=== PATIENT | male | born 1975 | race Hispanic/Latino ===

== ENCOUNTER 2018-05-18 14:19 | Outpatient (CLI) | payer BC | END 2018-05-18 14:20 | disposition home or self-care (01) | LOC: DTY/OP 14:19 | PROVIDERS: ATTEND Family Medicine | DX: E11.9 Type 2 diabetes mellitus without complications (principal); E66.9 Obesity, unspecified | CPT/HCPCS: 97802 ==

== ENCOUNTER 2019-06-26 20:42 | Inpatient (IN) | payer BC ==
[2019-06-26] MEDS ORDERED: Ondansetron ODT 4 MG TAB PO PRN (21:28)
[2019-06-26] MEDS ORDERED: Acetaminophen 325 MG TAB PO PRN (21:28)
[2019-06-26] MEDS ORDERED: Vancomycin HCl 1 GM in Sodium Chloride 0.9% 250 ML 250 ML IVPB SCH (22:00)
[2019-06-26] MEDS ORDERED: Dextrose 5% in Water 1,000 ML IV PRN (22:10)
[2019-06-26] MEDS ORDERED: Dextrose 50% Abboject 50 ML SYRINGE SLOW IVP PRN (22:10)
--- NOTE | 2019-06-26 22:24 | PDOC.EVN ---
Event Note - Event Note Event Note: [id number] H&P dictated
[2019-06-26 23:27] VITALS: BMI 38.7
[2019-06-26] MEDS: Sodium Chloride 0.9% 1,000 ML IV SCH (23:47)
[2019-06-26] MEDS: Piperacillin/Tazobactam 3.375 GM in Sodium Chloride 0.9% 100 ML IVPB SCH (23:51)
--- NOTE | 2019-06-27 02:43 | HP ---
CHIEF COMPLAINT: Pain and swelling of the scrotum. HISTORY OF PRESENT ILLNESS: Mr. Saavedra is a 44-year-old male with past medical history of diabetes mellitus type 2, hydrocele which was questionably drained in the past, presents to an outside emergency room with a chief complaint of pain and swelling of the left scrotum, which started a few days ago. The patient denies fevers, chills, nausea, vomiting, or abdominal pain. Workup in the emergency room, the patient was found to be hyperglycemic with a glucose more than 600. Anion gap is normal. The patient initially was tachycardic, but after IV fluids, his heart rate is in the 80s. Ultrasound of the scrotum showed a complex left hydrocele with possible infection. ? phlegmon cannot be excluded. The patient is being admitted, started on IV antibiotics, urologist will be consulted. PAST MEDICAL HISTORY: 1. Diabetes mellitus. 2. Hypertension. 3. Hyperlipidemia. 4. Hydrocele. PAST SURGICAL HISTORY: ? drainage of hydrocele. SOCIAL HISTORY: Denies smoking, alcohol drinking, or drug abuse. HOME MEDICATIONS: Please see home medication reconciliation form for updated medication. ALLERGIES: LISTED ELSEWHERE IN THE CHART. REVIEW OF SYSTEMS: Review of 14 systems negative except what is mentioned in the history of present illness. PHYSICAL EXAMINATION: GENERAL: The patient is awake, alert, does not appear to be in acute distress. VITAL SIGNS: Blood pressure is 150/90, temperature is 98.7, pulse is 95, respiratory rate is 20. HEAD AND NECK: Normocephalic, atraumatic. Neck is supple. No JVD. CHEST: Fair bilateral air entry. HEART: S1, S2. Regular. ABDOMEN: Soft, nontender. Bowel sounds present. GENITOURINARY: Left scrotal swelling, erythema, and tenderness. NEUROLOGIC: Awake, alert, oriented x3. PSYCH: Normal mood. EXTREMITIES: No clubbing or cyanosis. LABORATORY DATA: Glucose is 617, BUN is 10, creatinine is 1, sodium 133, potassium 4.2. WBC 9.3, hemoglobin 14.4, platelets 211. Ultrasound of the scrotum as mentioned above in the history of present illness. ASSESSMENT AND PLAN: Mr. Saavedra is a 44-year-old male with history of hypertension, diabetes mellitus, hyperlipidemia, and hydrocele, who presented with pain and swelling of the scrotum. 1. Infected hydrocele, questionably. 2. Diabetes mellitus with hyperglycemia. 3. Hypertension. 4. Hyperlipidemia. PLAN: 1. Admit. 2. The patient was started on IV antibiotics in the emergency room. We will continue with IV vancomycin and Zosyn. 3. IV fluid hydration. 4. We will consult Urology for evaluation and further recommendations. 5. We will keep the patient n.p.o. after midnight until patient is seen and evaluated by urologist. 6. Monitor and control blood glucose, replace the patient's sliding scale insulin coverage. 7. Reconcile home medications. 8. DVT prophylaxis, early ambulation. 9. Expected length of stay, 2 midnights or more. Job ID: [id number]
[2019-06-27] MEDS: Piperacillin/Tazobactam 3.375 GM in Sodium Chloride 0.9% 100 ML IVPB SCH ×4 (05:43→23:27)
[2019-06-27 06:44] LABS: #Basophils 0.1 thou/uL (0.0-0.2); #Eosinphils 0.1 thou/uL (0.0-0.7); #Lymphocytes 1.9 thou/uL (1.20-3.40); #Monocytes 0.8 thou/uL (0.11-0.59); #Neutrophils 5.5 thou/uL (1.40-6.50); %Basophils 0.7 % (0.0-1.0); %Eosinophils 1.6 % (0.0-10.0); %Lymphocytes 22.3 % (21.0-51.0); %Monocytes 9.5 % (0.0-10.0); Hemoglobin 13.2 g/dL (14.0-18.0); Mean Corpuscular HGB CONC 35.4 g/dL (32.0-36.0); Mean Corpuscular Volume 90.5 fL (78.0-98.0); Mean Platelet Volume 7.1 fL (7.4-10.4); Platelet Count 182 thou/uL (130-400); RBC Distribution Width 11.2 % (11.5-14.5); Red Blood Cell (RBC) Count 4.11 mill/uL (4.70-6.10); White Blood Cell (WBC) Count 8.4 thou/uL (4.8-10.8)
[2019-06-27 07:10] LABS: Anion Gap 10 mmol/L (10-20); BUN (Urea Nitrogen) 8 mg/dL (8.9-20.6); Calc. Creatinine Clearance 159 mL/min (70-130); Calcium 8.6 mg/dL (7.8-10.44); Carbon Dioxide 24 mmol/L (22-29); Chloride 102 mmol/L (98-107); Estimated GFR-MDRD 85; Glucose 289 mg/dL (70-105); Sodium 132 mmol/L (136-145)
[2019-06-27] MEDS: Vancomycin HCl 1.5 GM in Sodium Chloride 0.9% 250 ML 300 ML IVPB SCH ×2 (08:26→16:23)
[2019-06-27] MEDS: Sodium Chloride 0.9% 1,000 ML IV SCH ×2 (08:27→15:38)
[2019-06-27 08:50] LABS: Hemoglobin A1c 12.8 % (4.0-6.0)
[2019-06-27] MEDS: Insulin Glargine 12 UNITS in Pre-Filled Syringe 1 EACH SC SCH (09:14)
--- NOTE | 2019-06-27 12:07 | PDOC.HOSPP ---
- Subjective Encounter Date: 06/27/19 Encounter Time: 14:59 Subjective: 44 y/o male with DM and prior history of hydrocoele s/p drainage admitted with worsening scrotal swelling and pain associated with purulent drainage. US showed complex left hydrocoele and he was started on antibiotics. S/p I&D with wound vac placement by urology. Denied fever. - Objective Vital Signs & Weight: Vital Signs (12 hours) Temp Pulse Resp BP Pulse Ox 06/27/19 08:31 98.1 F 67 16 133/87 97 06/27/19 08:00 98.1 F 68 06/27/19 01:51 98.5 F 72 18 110/68 96 Weight Weight 255 lb Result Diagrams: 06/27/19 06:16 06/27/19 06:15 Additional Labs: Accuchecks 06/27/19 06/26/19 05:49 23:27 POC Glucose 269 H 357 H Hospitalist ROS - Medication Medications: Active Medications Generic Name Dose Route Start Last Admin Trade Name Freq PRN Reason Stop Dose Admin Sodium Chloride 1,000 mls @ 100 mls/hr 06/26/19 21:30 06/27/19 08:27 Normal Saline 0.9% IV Not Given .Q10H MEKA Piperacillin Sod/Tazobactam 100 mls @ 200 mls/hr 06/26/19 23:59 06/27/19 05: 43 Sod 3.375 gm/ Sodium Chloride IVPB 100 mls Q6HR MEKA Administration Vancomycin HCl 1.5 gm/ Sodium 300 mls @ 200 mls/hr 06/27/19 09:00 06/27/19 08 :26 Chloride IVPB 07/02/19 23:59 300 mls 0100,0900,1700 MEKA Administration Insulin Glargine 12 units/ 0.12 mls @ 0 mls/hr 06/27/19 09:00 06/27/19 09:14 Miscellaneous Medication SC 0.12 mls QAM MEKA Administration - Exam General Appearance: awake alert General - other findings: obese Eye: anicteric sclera ENT: normocephalic atraumatic, moist mucosa Neck: supple Neck - other findings: short thick neck Heart: RRR Respiratory: no wheezes, no rales, no ronchi Gastrointestinal: soft, non-tender, non-distended, normal bowel sounds Gastrointestinal - other findings: Left scrotal dressing and wound vac noted Extremities: no edema Neurological: cranial nerve grossly intact, no focal deficits Musculoskeletal: normal tone, no muscle wasting Psychiatric: normal affect, A&O x 3 Hosp A/P (1) Infected hydrocele Code(s): N43.1 - INFECTED HYDROCELE Status: Acute (2) Diabetes mellitus Code(s): E11.9 - TYPE 2 DIABETES MELLITUS WITHOUT COMPLICATIONS Status: Acute (3) HTN (hypertension) Code(s): I10 - ESSENTIAL (PRIMARY) HYPERTENSION Status: Acute (4) Obesity (BMI 35.0-39.9 without comorbidity) Code(s): E66.9 - OBESITY, UNSPECIFIED Status: Acute (5) Hyponatremia Code(s): E87.1 - HYPO-OSMOLALITY AND HYPONATREMIA Status: Acute - Plan Continue antibioticss Awaiting culture results wound care as per urology Continue insulin therapy.
[2019-06-27] MEDS ORDERED: Bupivacaine HCl 0.5%/Epinephrine 1:200,000/PF 30 ml Vial ONE (12:28)
[2019-06-27] MEDS ORDERED: Fentanyl 100 MCG/2 ML VIAL ONE ×4 (12:28→14:21)
[2019-06-27] MEDS ORDERED: Famotidine/PF 20 mg/2ml Vial ONE (12:53)
[2019-06-27] MEDS ORDERED: Promethazine HCl 25 MG/ML VIAL IM PRN (13:27)
[2019-06-27] MEDS ORDERED: Promethazine HCl 25 MG/ML VIAL SLOW IVP PRN (13:27)
[2019-06-27] MEDS ORDERED: Ondansetron HCl/PF 4 MG/2 ML Vial IVP PRN (13:27)
[2019-06-27] MEDS ORDERED: Metoclopramide HCl 10 MG/2 ML VIAL ONE (14:29)
[2019-06-27] MEDS ORDERED: Dexamethasone 20 MG/5 ML VIAL ONE (14:29)
[2019-06-27] MEDS ORDERED: Lidocaine 1% PF 5 ML VIAL ONE (14:29)
[2019-06-27] MEDS ORDERED: PROPOFOL 200 MG/20 ML VIAL ONE (14:29)
[2019-06-27] MEDS ORDERED: Ondansetron PF 4 MG/2 ML Vial ONE (14:29)
--- NOTE | 2019-06-27 14:42 | CON ---
DATE OF CONSULTATION: 06/27/2019 HISTORY OF PRESENT ILLNESS: This is a 44-year-old male, whom I was asked to see today by the Hospitalist Service. He was admitted last night, started on Zosyn for what was initially described as infected hydrocele. I think he initially went to [facility]. He already had ultrasound done there, and I read that as possibly being a hydrocele. I have looked through his medical records here at [facility] and Dr. Sachin Agosto did a right hydrocelectomy on him 5 years ago. Pathology was benign. It was described as a thickened hydrocele sac. I am talking with him, he has not had really trouble with his testicles, does not have a hydrocele, but he has had pain and tenderness on the left side and a day or two ago he started draining some purulent fluid from the left side. He is a diabetic. His diabetes has not been recently under good control. His blood work is all normal apart from elevated glucose. PAST MEDICAL HISTORY: He has had a hydrocelectomy and he has had diabetes, hypertension, and elevated cholesterol. SOCIAL HISTORY: Drink some alcohol. Does not smoking. He is currently single. He has 2 twins, who are healthy. FAMILY HISTORY: Positive for some heart disease and diabetes. MEDICATIONS: Listed. He has been receiving Zosyn. ALLERGIES: I DO NOT BELIEVE HE HAS ANY DRUG ALLERGIES. PHYSICAL EXAMINATION: The penis is not circumcised. He has some mild balanitis and some cracking is probably related to diabetes. Testicles are descended without mass or tenderness. There is no scrotal cellulitis. There is no hydrocele noted on either side. ASSESSMENT/PLAN: He has an area that looks like it is probably a small drainage tract probably from perhaps a sebaceous cyst or sweat gland. He is draining a purulent material that we actually sent for Gram stain, culture and sensitivity, both anaerobic and aerobic. There was probably a 3 to 4 cm area x 3 cm area x 3 cm area of induration in this region is tender, indicating most likely it is still an abscess that is incompletely drained. Given the option of trying to open up at the bedside versus going to sleep. He preferred going to sleep, so we will take him to the OR, probably had to open it up 4 cm or so, get it completely cleaned out and drained out and then if available, I have the wound care team come by and place a wound VAC on him while he is asleep. I think he probably be in the hospital a day longer. He needs to get better control of his diabetes. It is probably why I kept this. This was all discussed with him. Job ID: [id number]
--- NOTE | 2019-06-27 14:56 | OP ---
DATE OF PROCEDURE: 06/27/2019 PREOPERATIVE DIAGNOSIS: Left scrotal abscess. POSTOPERATIVE DIAGNOSIS: Left scrotal abscess. PROCEDURES PERFORMED: Incision and drainage of abscess. ANESTHESIA: General. ESTIMATED BLOOD LOSS: Less than 50. DRAINS: None. PATH: None. FINDINGS: There was a 4 x 3 cm area of induration and fluctuance. It was actually just lateral to the left scrotum and just slightly to the top side of it. We incised and drained this. Culture was not sent as one was already sent from the floor. DESCRIPTION OF PROCEDURE: After obtained written and verbal consent from the patient, he was taken to the operating suite. He was placed in the supine position on the treatment table. PlexiPulse was placed on his lower extremities and turned on. He was given a general anesthetic and oral obturator intubation. He was shaved and sterilely prepped and draped. A small incision was made over the existing site that had drained and probably 10 mL of pus were drained. We then used hemostat to open up some of the loculations in there and then opened the incision up the length of the induration. Using an electrocautery unit to easily control hemostasis. we had drained all of the abscess cavity. We irrigated out with a combination of Betadine, peroxide, and water and then just with water. We obtained hemostasis and then turned the procedure over to Wound Care to place a wound VAC if possible. After that was done, the patient was awakened, extubated, and taken by a stretcher back to the recovery room. Job ID: [id number]
[2019-06-27] MEDS: HumaLOG 300 UNITS/3 ML VIAL SC PRN ×2 (16:40→20:28)
[2019-06-27] MEDS ORDERED: traMADol HCl 50 MG TAB PO PRN (18:37)
[2019-06-28 00:27] LABS: Vancomycin, Trough 13.8 ug/mL
[2019-06-28] MEDS: Vancomycin HCl 1.5 GM in Sodium Chloride 0.9% 250 ML 300 ML IVPB SCH ×2 (00:51→09:28)
[2019-06-28] MEDS: Piperacillin/Tazobactam 3.375 GM in Sodium Chloride 0.9% 100 ML IVPB SCH ×2 (05:04→12:45)
[2019-06-28 05:40] LABS: #Lymphocytes 1.1 thou/uL (1.20-3.40); #Monocytes 0.4 thou/uL (0.11-0.59); #Neutrophils 7.3 thou/uL (1.40-6.50); %Basophils 0.2 % (0.0-1.0); %Eosinophils 0.1 % (0.0-10.0); %Lymphocytes 12.7 % (21.0-51.0); %Monocytes 4.9 % (0.0-10.0); %Neutrophils 82.1 % (42.0-75.0); Hemoglobin 13.1 g/dL (14.0-18.0); Mean Corpuscular HGB CONC 34.9 g/dL (32.0-36.0); Mean Corpuscular Hemoglobin 31.5 pg (27.0-31.0); Mean Corpuscular Volume 90.1 fL (78.0-98.0); Mean Platelet Volume 7.2 fL (7.4-10.4); Platelet Count 204 thou/uL (130-400); Red Blood Cell (RBC) Count 4.16 mill/uL (4.70-6.10); White Blood Cell (WBC) Count 8.9 thou/uL (4.8-10.8)
[2019-06-28] MEDS: HumaLOG 300 UNITS/3 ML VIAL SC PRN ×4 (05:53→20:59)
[2019-06-28 05:56] LABS: Anion Gap 11 mmol/L (10-20); BUN (Urea Nitrogen) 9 mg/dL (8.9-20.6); Calc. Creatinine Clearance 154 mL/min (70-130); Calcium 8.7 mg/dL (7.8-10.44); Carbon Dioxide 21 mmol/L (22-29); Chloride 101 mmol/L (98-107); Estimated GFR-MDRD 82; Glucose 283 mg/dL (70-105); Potassium 4.2 mmol/L (3.5-5.1); Sodium 129 mmol/L (136-145)
[2019-06-28] MEDS: Insulin Glargine 12 UNITS in Pre-Filled Syringe 1 EACH SC SCH (09:06)
[2019-06-28] MEDS: Sodium Chloride 0.9% 1,000 ML IV SCH ×2 (09:09→15:15)
[2019-06-28] MEDS ORDERED: Insulin Glargine 24 UNITS in Pre-Filled Syringe 1 EACH SC SCH (10:58)
[2019-06-28] MEDS ORDERED: Insulin Glargine 12 UNITS in Pre-Filled Syringe 1 EACH SC SCH (11:00)
--- NOTE | 2019-06-28 14:49 | PDOC.HOSPP ---
- Subjective Encounter Date: 06/28/19 Encounter Time: 14:48 Subjective: 44 y/o male with DM and prior history of hydrocoele s/p drainage admitted with worsening scrotal swelling and pain associated with purulent drainage. US showed complex left hydrocoele and he was started on antibiotics. S/p I&D with wound vac placement by urology. Denied fever. Feeling better. Patient admitted that he has not being compliant with medications - Objective Vital Signs & Weight: Vital Signs (12 hours) Temp Pulse Resp BP Pulse Ox 06/28/19 11:49 98.0 F 69 18 116/74 96 06/28/19 08:00 98.3 F 06/28/19 07:52 98.3 F 70 18 129/79 97 06/28/19 04:16 98.2 F 69 16 118/70 95 Weight Weight 255 lb I&O: 06/27/19 06/28/19 06/29/19 06:59 06:59 06:59 Intake Total 5000 240 Output Total 2050 Balance 2950 240 Result Diagrams: 06/28/19 05:05 06/28/19 05:05 Additional Labs: Accuchecks 06/28/19 06/28/19 06/27/19 11:30 04:18 19:30 POC Glucose 351 H 303 H 363 H 06/27/19 16:35 POC Glucose 344 H Hospitalist ROS - Medication Medications: Active Medications Generic Name Dose Route Start Last Admin Trade Name Freq PRN Reason Stop Dose Admin Insulin Human Lispro 0 units 06/26/19 22:10 06/28/19 12:48 Humalog SC 11 unit .MODERATE SLIDING SC PRN Administration Moderate Correctional Scale - Exam General Appearance: awake alert General - other findings: obese Eye: PERRL, anicteric sclera ENT: normocephalic atraumatic, moist mucosa Neck: supple, symmetric, no JVD Heart: RRR Respiratory: no wheezes, no rales, no ronchi, normal chest expansion Gastrointestinal: soft, non-tender, non-distended, normal bowel sounds Gastrointestinal - other findings: Left scrotal wound vac in place Extremities: no cyanosis, no edema Neurological: cranial nerve grossly intact, no focal deficits Psychiatric: normal affect, A&O x 3 Hosp A/P (1) Infected hydrocele Code(s): N43.1 - INFECTED HYDROCELE Status: Acute (2) Diabetes mellitus Code(s): E11.9 - TYPE 2 DIABETES MELLITUS WITHOUT COMPLICATIONS Status: Acute (3) HTN (hypertension) Code(s): I10 - ESSENTIAL (PRIMARY) HYPERTENSION Status: Acute (4) Obesity (BMI 35.0-39.9 without comorbidity) Code(s): E66.9 - OBESITY, UNSPECIFIED Status: Acute (5) Hyponatremia Code(s): E87.1 - HYPO-OSMOLALITY AND HYPONATREMIA Status: Acute (6) Streptococcus agalactiae infection Code(s): A49.1 - STREPTOCOCCAL INFECTION, UNSPECIFIED SITE Status: Acute - Plan Start oral augmentin. DC IV vanc and zosyn Increase lantus to 24 daily. Start metformin bid. Continue sliding scale insulin. Wound care as per urology Weight loss advised Repeat BMP and CBC in the am. possible discharge tomorrow.
[2019-06-28] MEDS: metFORMIN 500 MG TAB PO SCH (17:23)
[2019-06-28] MEDS: Amoxicillin/Potassium Clav 875 MG TAB PO SCH (20:00)
[2019-06-29 05:33] LABS: #Basophils 0.1 thou/uL (0.0-0.2); #Eosinphils 0.1 thou/uL (0.0-0.7); #Lymphocytes 2.3 thou/uL (1.20-3.40); #Monocytes 0.7 thou/uL (0.11-0.59); #Neutrophils 4.9 thou/uL (1.40-6.50); %Basophils 1.4 % (0.0-1.0); %Eosinophils 1.4 % (0.0-10.0); %Lymphocytes 28.4 % (21.0-51.0); %Monocytes 8.1 % (0.0-10.0); %Neutrophils 60.8 % (42.0-75.0); Hemoglobin 13.3 g/dL (14.0-18.0); Mean Corpuscular Hemoglobin 32.1 pg (27.0-31.0); Mean Corpuscular Volume 91.7 fL (78.0-98.0); Mean Platelet Volume 7.1 fL (7.4-10.4); Platelet Count 202 thou/uL (130-400); RBC Distribution Width 11.3 % (11.5-14.5); Red Blood Cell (RBC) Count 4.14 mill/uL (4.70-6.10)
[2019-06-29] MEDS: HumaLOG 300 UNITS/3 ML VIAL SC PRN ×3 (05:41→16:46)
[2019-06-29 06:22] LABS: Anion Gap 12 mmol/L (10-20); BUN (Urea Nitrogen) 13 mg/dL (8.9-20.6); Calc. Creatinine Clearance 171 mL/min (70-130); Calcium 8.6 mg/dL (7.8-10.44); Carbon Dioxide 21 mmol/L (22-29); Chloride 104 mmol/L (98-107); Estimated GFR-MDRD Greater than 90; Glucose 214 mg/dL (70-105); Potassium 3.6 mmol/L (3.5-5.1); Sodium 133 mmol/L (136-145)
[2019-06-29] MEDS: Amoxicillin/Potassium Clav 875 MG TAB PO SCH (08:05)
[2019-06-29] MEDS: metFORMIN 500 MG TAB PO SCH ×2 (08:05→16:46)
[2019-06-29] MEDS ORDERED: Non-Formulary Item 1 EACH (Dulaglutide [Trulicity] 1.5 MG) SC SCH (08:15)
[2019-06-29] MEDS ORDERED: Alogliptin 25 MG TAB PO SCH (09:00)
[2019-06-29 12:39] VITALS: TEMP 98.1
[2019-06-29 17:52] VITALS: BP 139/95
--- NOTE | 2019-06-30 00:25 | DIS ---
DATE OF ADMISSION: 06/26/2019 DATE OF DISCHARGE: 06/29/2019 DISCHARGE DISPOSITION: Home. DISCHARGE DIAGNOSES: 1. Infected hydrocele. 2. Diabetes mellitus, type 2. 3. Hypertension. 4. Hyperlipidemia. DISCHARGE MEDICATIONS: Include: 1. Augmentin 875 mg p.o. twice a day for 10 days. 2. Januvia 100 mg p.o. daily. 3. Simvastatin 10 mg at bedtime. 4. Glumetza 1000 mg p.o. twice daily. 5. Lisinopril 20 mg daily. 6. Trulicity 1.5 mg every week. CODE STATUS: Full code. ALLERGIES: NO KNOWN DRUG ALLERGIES. PROCEDURES DONE DURING THIS ADMISSION: The patient had an I and D of the scrotal abscess and drainage and placement of a wound VAC. HOSPITAL COURSE: Mr. Saavedra is a pleasant 44-year-old gentleman, who presented to the emergency room with scrotal edema and pain. He was found to have an infected hydrocele, developing a scrotal abscess. He was placed on IV antibiotics and Urology was consulted. He underwent I and D of the hydrocele and wound VAC was placed. Arrangements were made for him to receive outpatient wound care at our [facility]. The plan was for this to be twice a week. On 06/29/2019, he was stable enough to be discharged home and is to follow up with his primary care physician in 1 to 2 weeks. Job ID: [id number]
== END 2019-06-29 17:52 | disposition home or self-care (01) | DRG 717 ==
LOC: T4-A 20:47
PROVIDERS: ADMIT Internal Medicine; ATTEND Internal Medicine
PROC: 0V950ZZ Drainage of Scrotum, Open Approach (ICD-10-PCS; principal; 2019-06-27)
DX: N43.1 Infected hydrocele (principal); E87.1 Hypo-osmolality and hyponatremia; I10 Essential (primary) hypertension; E78.5 Hyperlipidemia, unspecified; E11.65 Type 2 diabetes mellitus with hyperglycemia; E66.9 Obesity, unspecified; N49.2 Inflammatory disorders of scrotum; A49.1 Streptococcal infection, unspecified site; Z68.38 Body mass index [BMI] 38.0-38.9, adult
CPT/HCPCS: 36415; 36416; 80048; 80202; 83036; 85025; 87070; 87077; 87205; J0670; J1100; J1815; J2001; J2405; J2543; J2704; J2765; J3010; J3370; J3490; J7050; S0028

== ENCOUNTER 2019-07-01 08:59 | Outpatient (CLI) | payer BC ==
[2019-07-01] MEDS ORDERED: Sodium Chloride 0.9% 15 ML NEB ONE (09:00)
== END 2019-07-01 09:00 | disposition home or self-care (01) ==
LOC: WCC 08:59
PROVIDERS: ATTEND Family Medicine
DX: T81.89XD Other complications of procedures, not elsewhere classified, subsequent encounter (principal)
CPT/HCPCS: 36416; 97605; A4218

== ENCOUNTER 2019-07-05 15:13 | Outpatient (CLI) | payer BC ==
[2019-07-05] MEDS ORDERED: Sodium Chloride 0.9% 15 ML NEB ONE (17:24)
== END 2019-07-05 15:14 | disposition home or self-care (01) ==
LOC: WCC 15:13
PROVIDERS: ATTEND Family Medicine
DX: T81.89XD Other complications of procedures, not elsewhere classified, subsequent encounter (principal)
CPT/HCPCS: 36415; 80061; 83036; 97605; A4218

== ENCOUNTER 2019-07-08 14:46 | Outpatient (CLI) | payer BC ==
[~2019-07-08 14:46] MED LIST: Sodium Chloride 0.9% 15 ML NEB ONE
== END 2019-07-08 14:47 | disposition home or self-care (01) ==
LOC: WCC 14:46
PROVIDERS: ATTEND Family Medicine
DX: T81.89XD Other complications of procedures, not elsewhere classified, subsequent encounter (principal)
CPT/HCPCS: 36416; A4218

== ENCOUNTER 2019-07-12 14:14 | Outpatient (CLI) | payer BC ==
[2019-07-12] MEDS ORDERED: Sodium Chloride 0.9% 15 ML NEB ONE (17:08)
--- NOTE | 2019-07-12 23:20 | HP ---
HISTORY OF PRESENT ILLNESS: Mr. Neftaly Saavedra is a very pleasant 44-year-old gentleman, who presents to the Wound Center for evaluation of a wound of the left scrotum subsequent to incision and drainage of a left scrotal abscess. The patient underwent the preceding procedure on 06/27/[address] Spangler. Negative pressure therapy was initiated intraoperatively and upon discharge from [facility], the patient was referred to the Wound Center for assistance with dressing changes of the wound VAC. The patient was discharged to home on Augmentin 875 mg p.o. b.i.d. for 10 days. The patient has no complaints today. He denies any fever or chills. PAST MEDICAL HISTORY: 1. Diabetes mellitus. 2. Hypertension. PAST SURGICAL HISTORY: 1. Right hydrocelectomy on 04/12/2014. 2. Incision and drainage of left scrotal abscess on 06/27/2019. MEDICATIONS: 1. Augmentin. 2. Metformin. 3. Lisinopril. 4. Januvia. 5. Trulicity. 6. Simvastatin. ALLERGIES: NO KNOWN DIAGNOSED ALLERGIES. SOCIAL HISTORY: Social history is negative for tobacco use. The patient admits to the consumption of 1 6-pack of beer every 3 weeks since 1995. FAMILY HISTORY: Family history is significant for diabetes mellitus. The patient's mother and father were both diagnosed with diabetes mellitus. Family history is also significant for coronary artery disease. The patient's father was diagnosed with coronary artery disease. PHYSICAL EXAMINATION: VITAL SIGNS: Temperature 98.5, pulse 107, respirations 20, and blood pressure 156/73. Accu-Chek 355. GENERAL: A 44-year-old gentleman, lying on stretcher in examination room, in no acute distress. HEENT: Normocephalic, atraumatic. NECK: No nuchal rigidity. CHEST: Clear to auscultation. CV: Regular rate and rhythm. ABDOMEN: Soft. EXTREMITIES: No clubbing or cyanosis. NEUROLOGIC: Grossly nonfocal. PERINEUM: A wound of the left scrotum is present, which measures approximately 4.9 x 1.5 cm. Granulation tissue is present within the wound margins. No purulent drainage is associated with the wound. No erythema of the skin surrounding the wound is present. No maceration of the skin of the periwound is noted. ASSESSMENT AND PLAN: 1. Left scrotal wound as described above. Dressing changes of Multidex powder will be initiated today. These dressing changes are to be performed on a daily basis after cleansing and irrigation. Gauze will be utilized as a secondary dressing. I will see Mr. Saavedra again in 1 to 2 weeks. The patient understands and is in agreement with the preceding treatment plan. 2. Diabetes mellitus. The patient's Accu-Chek in clinic today is 355. The patient has been told that for optimal wound healing, his blood glucoses should remain below 150. 3. Hypertension. Job ID: [id number]
== END 2019-07-12 14:15 | disposition home or self-care (01) ==
LOC: WCC 14:14
PROVIDERS: ATTEND Family Medicine
DX: S31.000D Unspecified open wound of lower back and pelvis without penetration into retroperitoneum, subsequent encounter (principal); I10 Essential (primary) hypertension; E11.9 Type 2 diabetes mellitus without complications
CPT/HCPCS: 36416; 97602; 99203; A4218; G0463

== ENCOUNTER 2019-07-19 16:02 | Outpatient (CLI) | payer BC ==
--- NOTE | 2019-07-19 15:51 | PRG ---
DATE OF SERVICE: 07/19/2019 HISTORY: Mr. Neftaly Saavedra is a very pleasant 44-year-old gentleman, who presents to the wound center for evaluation of a wound of the left scrotum subsequent to incision and drainage of a left scrotal abscess. The patient underwent the preceding procedure on 06/27/[address] Spangelr. Negative pressure therapy was initiated intraoperatively, and upon discharge from [facility], the patient was referred to the wound center for assistance with dressing changes of the wound VAC. The patient was discharged to home on Augmentin 875 mg p.o. b.i.d. x10 days. The patient has no complaints today. He denies any fever or chills. PHYSICAL EXAMINATION: VITAL SIGNS: Temperature 98.1, pulse 92, respirations 16, and blood pressure 149/83. Accu-Chek 237. PERINEUM: A wound of the left scrotum is present, which measures approximately 4.5 x 1.1 cm. The dimensions of the wound at the time of the patient's last visit were approximately 4.9 x 1.5 cm. Granulation tissue is present within the wound margins. No purulent drainage is associated with the wound. No maceration of the skin of the periwound is noted. ASSESSMENT AND PLAN: 1. Left scrotal wound as described above. Dressing changes of Multidex powder will be continued on a daily basis after cleansing and irrigation. Gauze will be utilized as a secondary dressing. I will see Mr. Saavedra again in 1 week. The patient has been given a release from work until 07/26/2019. 2. Diabetes mellitus. The patient's Accu-Chek in clinic today is 237. The patient has been told that for optimal wound healing, his blood glucoses should remain below 150. 3. Hypertension. Job ID: [id number]
== END 2019-07-19 16:03 | disposition home or self-care (01) ==
LOC: WCC 16:02
PROVIDERS: ATTEND Family Medicine
DX: T81.89XD Other complications of procedures, not elsewhere classified, subsequent encounter (principal); I10 Essential (primary) hypertension
CPT/HCPCS: 36416; A4218

== ENCOUNTER 2019-07-26 14:28 | Outpatient (CLI) | payer BC ==
--- NOTE | 2019-07-26 16:14 | PRG ---
DATE OF SERVICE: 07/26/2019 SUBJECTIVE HISTORY: Mr. Neftaly Saavedra is a very pleasant 44-year-old gentleman, who presents to the Wound Center for evaluation of a wound of the left scrotum subsequent to incision and drainage of a left scrotal abscess. The patient underwent the preceding procedure on 06/27/[address] Spangler. Negative pressure therapy was initiated intraoperatively and upon discharge from [facility], the patient was referred to the Wound Center for assistance with dressing changes of the wound VAC. The patient was discharged to home on Augmentin 875 mg p.o. b.i.d. x10 days. After completing a course of negative pressure therapy, the patient was placed on dressing changes of Multidex powder on a daily basis after cleansing and irrigation. The patient has no complaints today. He denies any fever or chills. OBJECTIVE: VITAL SIGNS: Temperature 98.3, pulse 98, respirations 18, blood pressure 135/79. Accu-Chek 205. PERINEUM: A wound of the left scrotum is present which measures approximately 3.5 x 0.8 cm. The dimensions of the wound at the time of the patient's last visit were approximately 4.5 x 1.1 cm. Granulation tissue is present within the wound margins. No purulent drainage is associated with the wound. No maceration of the skin of the periwound is noted. No erythema of the skin surrounding the wound is present. ASSESSMENT AND PLAN: 1. Left scrotal wound as described above. Dressing changes of Multidex powder will be continued on a daily basis after cleansing and irrigation. Gauze will be utilized as a secondary dressing. I will see Mr. Saavedra again in 1 week. 2. Diabetes mellitus. The patient's Accu-Chek in clinic today is 205. The patient has been reminded that for optimal wound healing his blood glucoses should remain below 150. 3. Hypertension. Job ID: [id number]
[2019-07-26] MEDS ORDERED: Sodium Chloride 0.9% 15 ML NEB ONE (18:00)
== END 2019-07-26 14:29 | disposition home or self-care (01) ==
LOC: WCC 14:28
PROVIDERS: ATTEND Family Medicine
DX: T81.89XD Other complications of procedures, not elsewhere classified, subsequent encounter (principal); E11.9 Type 2 diabetes mellitus without complications; I10 Essential (primary) hypertension
CPT/HCPCS: 97602; A4218

== ENCOUNTER 2019-08-02 14:05 | Outpatient (CLI) | payer BC ==
--- NOTE | 2019-08-02 15:19 | PRG ---
DATE OF SERVICE: 08/02/2019 HISTORY: Mr. Neftaly Saavedra is a very pleasant 44-year-old gentleman, who presents to the Wound Center for evaluation of a wound of the left scrotum subsequent to incision and drainage of a left scrotal abscess. The patient underwent the preceding procedure on 06/27/2019, by Dr. Spangler. Negative pressure therapy was initiated intraoperatively, and upon discharge from [facility], the patient was referred to the Wound Center for assistance with dressing changes of the wound VAC. The patient was discharged to home on Augmentin 875 mg p.o. b.i.d. x10 days. After completing a course of negative pressure therapy, the patient was placed on dressing changes of Multidex powder on a daily basis after cleansing and irrigation. The patient has no complaints today. He denies any fever or chills. PHYSICAL EXAMINATION: VITAL SIGNS: Temperature 97.9, pulse 109, respirations 17, blood pressure 129/87. Accu-Chek 208. PERINEUM: The wound of the left scrotum has healed completely. ASSESSMENT AND PLAN: 1. Left scrotal wound. As stated above, the wound has completely healed. Dressing changes will be discontinued, and Mr. Saavedra will be discharged from clinic today with followup on a p.r.n. basis. The patient has been given a release in order to return to work without restrictions. 2. Diabetes mellitus. The patient's Accu-Chek in clinic today is 208. The patient has been reminded that for optimal wound healing, his blood glucoses should remain below 150. 3. Hypertension. Job ID: [id number]
== END 2019-08-02 14:06 | disposition home or self-care (01) ==
LOC: WCC 14:05
PROVIDERS: ATTEND Family Medicine
DX: T81.89XD Other complications of procedures, not elsewhere classified, subsequent encounter (principal); E11.9 Type 2 diabetes mellitus without complications; I10 Essential (primary) hypertension
CPT/HCPCS: A4218